=== PATIENT | male | born 1940 | race Caucasian/White ===

== ENCOUNTER 2017-08-12 07:00 | Inpatient (IN) | payer OTHER ==
[~2017-08-12] VITALS: Ht 167.6 cm; Wt 49.0 kg
[~2017-08-12 07:00] MED LIST: FLOMAX0.4 M1 PO; PROSCAR5 M1 PO; TRAMADOL HCL50 M1 PO
--- NOTE | 2017-08-12 13:55 | Operative Report ---
Operative/Inv Procedure Report Surgery Date: 08/12/17 Name of Procedure: 1. Reversal of colostomy with partial large bowel resection 2. Mobilization of splenic flexure 3. Lysis of adhesions lasting 1 hour 4. Rigid sigmoidoscopy Pre-Operative Diagnosis: 1.Crohn's colitis with colocutaneous fistulous 2. 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 Jimbo CAESY Anesthesia: general endotracheal tube, block Monitors: Per routine Drains: None Specimens: 1. Colostomy 2. Descending colon with splenic flexure 3. Rectum Complications: At the end of the case anesthesia the urine output was noted to be blood tinged Initially when the Mcnally was placed. A large volume of yellow clear urine After insertion had very little urine output At this point Dr. Ha urology was asked to see the patient. He performed Intra-Op consult. He felt that the catheter had become positioned. He removed the old catheter and placed a coud catheter. He confirmed placement with irrigation. Condition: Good Operative Indication: This is a 77-year-old gentleman with complex Crohn's disease Is status post Alcantara's procedure for perforated Crohn's disease with enterocutaneous fistula and fistula to inguinal hernia mesh. Sometime after his Alcantara's procedure he developed fistulization from the colon leading up to the colostomy to the skin. This caused constant pain and ongoing infection. He was referred to me Temporarily improve this situation by changing his stomal collection device I discussed the patient at length with his GI doctor. We went to the operating room with the plan of taking down this colostomy and if possible reversing the colostomy. Operative/Procedure Note Note: On the day before the operation the patient about prep at home including oral laxatives and oral antibiotics He presented to [facility] was given premedication per the ERAS protocol and then taken to the operating room And underwent induction of general anesthesia placement of endotracheal tube and placement of Mcnally catheter. Anesthesia to bilateral tap blocks. I sutured the opening to the stoma shut The patient was converted to lithotomy position in [facility]. At this point gentle digital exam was performed and had stricturing of the anus. Rigid sigmoidoscopy was performed. It was copiously amount of purulent appearing mucus within the rectal vault. A irrigated and aspirated this mucus away. The mucosa appeared otherwise healthy. So we proceeded to the abdominal portion of the operation The abdomen was prepped and draped in usual fashion. The medial generous midline incision took this incision down to the fascia. Fascia was carefully divided in the midline. Peritoneum was sharply incised into the abdominal cavity. For the next 30 minutes or so lysis of adhesions was carried out. The omentum was adherent to most of the midline incision and had here into the pelvis and this was freed up. Some interloop adhesions were sharply divided. At this point all the was swept out of the pelvis and we could identify the Alcantara's pouch which was very long. Next an elliptical incision was carried out around the stoma and the stoma was dissected free from the underlying subcutaneous tissues all the way to we reached the fascia. I was able to free the stomach from the fascia and pulled some additional colon out through this fascial defect. The distal 10 cm of bowel were very obviously affected with Crohn's. The bowel was firm and inflamed. The mesentery proximal to this bowel was cleared with electrocautery in vessel sealer. A FARAZ stapler was then used to divide this and of the bowel which was sent for routine path as colostomy. Additional lysis of adhesions was performed and the entire left colon was mobilized. The splenic flexure was completely mobilized. The gastrocolic ligament was divided for almost the entire length of the transverse colon. The transverse colon appeared healthy and appeared that what it would reach the pelvis. The more distal bowel was tethered by its mesentery. So the mesentery of the remaining descending colon and splenic flexure were divided with the LigaSure device. I chose my proximal site of transection cleared the mesentery here and once again the FARAZ stapler was used to divide the bowel. This specimen was sent as descending colon with splenic flexure. At this point the. The bookwalter was placed and the small bowel swept into the right upper quadrant. The most proximal portion of the Alcantara's pouch had become contracted and appeared unfit for anastomosis. I began to mobilize the rectosigmoid as I did so with electrocautery and the vessel sealer. The superior rectal artery was identified and ligated and divided with vessel sealer. I chose my site of transection on the rectum proper. A TA 55 stapler was used to seal the bowel and the bowel proximal to the stapler was excised sharply. The specimen was sent for routine path labeled rectum I excised the staple line on the colon. Handsewn pursestring was performed with 2-0 Prolene. 28 EEA stapler was chosen for the anastomosis. The anvil was placed into the lumen of the bowel and the pursestring was tied snugly around the PEG of the anvil. Next the EEA sizers then the EEA stapler passed transanally. The stapler spike was advanced through the rectal stump. Emerged in the midline of the of the staple line just anterior to the staple line. The 2 ends of the stapler were mated. The stapler was completely closed and allowed to settle for 30 seconds. The stapler was armed and fired. The stapler was opened and retrieved. 2 excellent donuts on the stapling device. The pelvis was filled with sterile saline. The bowel was gently occluded above the anastomosis and a rigid sigmoidoscopy was performed. The anastomosis appeared airtight. At this point the abdominal cavity was irrigated. Inspected for hemostasis which was adequate. Next we prepared for closure. The fascia at the colostomy site was closed with 0 Vicryl suture. The midline fascia was closed with running locking 0 PDS looped suture. The subcutaneous tissues in the midline suture were copiously irrigated and then the scope can was closed with skin placido. A probe was placed through the fistula opening medial to the old colostomy site and the skin between this ostomy site fistula was divided. A sterile dressing was placed over the midline incision. Before packing was placed into the old stoma wound site. At this point the hematuria was noted Dr. Ha placed a Mcnally. The patient was exiting operating room. He tolerated the procedure well. He was taken the recovery room in good condition. At the end of this operational needle sponges and measurements were accounted for Discharge Disposition: Same Day Admissions CC: Shannan MEYER,Andrae Pearson; Gabriel Calloway DO
[2017-08-12 16:00] VITALS: BP 120/68
--- NOTE | 2017-08-12 16:19 | Admission Core Measures ---
Acute Coronary Syndrome (CM) ACS Core Measures Acute Coronary Syndrome Diagnosis No Congestive Heart Failure (NEW) CHF Core Measures Congestive Heart Failure Diagnosis No Cerebrovascular Accident (NEW) CVA Core Measures CVA/TIA Diagnosis No Venous Thromboembolism VTE Core Forrest (View Protocol) VTE Risk Factors Surgery No Mechanical VTE Prophylaxis d/t N/A MechProphylax Ordered No VTE Pharm Prophylaxis d/t NA PharmProphylax ordered Problem List As ranked by this Provider includes Assessment & Plan 1. Crohn's disease of colon with fistula HOME MEDS Home Med List Finasteride (Proscar) 5 MG TABLET 1 TAB PO DAILY urinary retention Tamsulosin HCl (Flomax) 0.4 MG CAP.ER.24H 1 CAP PO DAILY urinary retention Tramadol HCl 50 MG TABLET 1 TAB PO Q 4-6P PRN pain
--- NOTE | 2017-08-12 16:32 | PN- General Surgery ---
Subjective Subjective: PT IN BED WITH ABDOMINAL PAIN 11/14. DENIES NAUSEA. COMPLAINS OF DRY MOUTH. DENIES CP/SOB/FEVERS. CROSS IN PLACE. HAS NOT AMBULATED YET Objective Vital Signs and I&Os Vital Signs Date Time Temp Pulse Resp B/P B/P Pulse O2 O2 Flow FiO2 Mean Ox Delivery Rate 08/12 1542 99 Nasal 2.0L Cannula Intake & Output 08/12 0808/12 0000 08/11 1600 08/11 0000 Intake Total Output Total Balance Patient 107 lb Weight Weight Bed scale Measurement Method Physical Exam: GEN- NAD RESP-CLEAR CARDIAC-RRR ABD- FLAT, -BS, APPROPRIATELY TENDER. DRESSING WITH SANG DRAINAGE AT INFERIOR ASPECT, EXT- WARM AND DRY WITH 2+ PT PULSE Current Medications: Current Medications Sig/Tye Start time Last Medication Dose Route Stop Time Status Admin Acetaminophen 1,000 MG Q8 08/12 1400 AC IV 08/13 0601 Acetaminophen 0 .STK-MED ONE 08/13 951 DC PO Acetaminophen 1,000 MG ONCE 08/12 0000 DC PO 08/12 2359 Alvimopan 12 MG Q12H 08/12 1900 AC PO Alvimopan 12 MG ONCE 08/12 0000 DC PO 08/12 2359 Cefazolin Sodium 2 GM IQ8 08/12 1600 AC N/A 1 UNIT IV 08/13 0029 Dextrose/Sodium 1,000 ML .Q20H 08/12 1545 AC Chloride IV Finasteride 5 MG DAILY 08/13 899 DC PO Finasteride 5 MG DAILY 08/13 899 AC PO Gabapentin 200 MG TID 08/12 1400 AC PO Gabapentin 0 .STK-MED ONE 08/12 0852 DC PO Gabapentin 600 MG ONCE 08/12 0000 DC PO 08/12 2359 Heparin Sodium 5,000 UNIT Q8 08/12 1400 AC (Porcine) SC Metronidazole 500 MG IQ8 08/12 1600 AC N/A 1 UNIT IV 08/13 0059 Ondansetron HCl 4 MG Q6P PRN 08/12 1545 AC IV Oxycodone HCl 5 MG Q4P PRN 08/12 1400 AC PO Oxycodone HCl 10 MG Q4 PRN 08/12 1400 AC PO Tamsulosin HCl 0.4 MG DAILY 08/13 899 DC PO Tamsulosin HCl 0.4 MG DAILY 05/09 0900 AC PO Assessment/Plan Assessment/Plan 77YO M WITH SIGNIF HX OF BPH and CROHNS REQUIRING HARTMANS PROCEDURE NOW SP COLOSTOMY REVERSAL POD0 on ERAS protocol. STABLE. TRAUMATIC CROSS INSERTION, WITH POST-OP HEMATURIA EVALUATED BY UROLOGY. THEY REPLACED CROSS WITH COUDE CATH WITH RECOMENDTIONS to leave in for at least 24hours 24hr hammad-op abx- ANCEF AND FLAGYL pain management with neurotin, Ofirmev and Oxycodone for breakthrough pain, try to limit narcotics Clear liquids DVT PPX- HSQ AND ALPS cross to stay in for at least 24h FU am labs IVF OOB Core Measures Venous Thromboembolism VTE Risk Factors Surgery No Mechanical VTE Prophylaxis d/t N/A MechProphylax Ordered No VTE Pharm Prophylaxis d/t NA PharmProphylax ordered
[2017-08-12 18:00] VITALS: BP 120/60
[2017-08-12 19:59] VITALS: BP 118/60
--- NOTE | 2017-08-12 21:04 | Surgical Discharge Summary ---
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 Home Who Do You Live With? Spouse Services at Home: None What is Your Primary Language? Nigerian Review of Systems: as per hpi Hospital Course Course Attending Physician: Jimbo Jameson Jr., DO Primary Care Physician: Gabriel Calloway DO Hospital Course: 77yo male with significant hx of Crohn's disease presents to [facility] on 08/12/17 for an elective reversal of colostomy with partial large bowel resection due to Crohn's colitis with multiple colocutaneous fistuli. Pt tolerated the procedure well. His ostomy site incision was partially closed with placido and was packed with iodiform and his midline incision was closed primarily with placido. Post- operatively it was noted that he had blood-tinged urine. Urology was called and they removed the cross and re-inserted a coude catheter and recommended the cross to stay in for at least 24h post-operatively. Pt was then extubated and brought to the recovery room in stable condition. During his hospital course his pain was controlled, he ambulated, his diet was advance to LRD which was tolerated, the cross was removed and he was cleared for DC to home with instuctions to follow-up with Dr. Jameson in 10 days. At discharge his wounds looked good. He was set up with home care for wet to dry daily dressing changes to the ostomy site. He was instructed to take immodium as needed since he is unable to recieve lomotil at this time due to cost issues. Allergies: Coded Allergies: No Known Allergies (08/07/17) Significant Procedures: 1. Reversal of colostomy with partial large bowel resection 2. Mobilization of splenic flexure 3. Lysis of adhesions lasting 1 hour 4. Rigid sigmoidoscopy See operative report Disposition Summary Disposition Principal Diagnosis: Crohn's colitis with colocutaneous fistulous Additional Diagnosis: SP colostomy reversal Discharge Disposition: home health services Discharge Instructions General Discharge Information Code Status: Full Code Patient's Diet: low residue Patient's Activity: as tolerated Follow-Up Instructions/Appts: FU with Dr. Jameson in 10 days, FU with DR Sahil Campbell Medications at Discharge Discharge Medications: Continue taking these medications: Finasteride (Proscar) 5 MG TABLET 1 Tablet ORAL DAILY Qty = 30 Comments: Last Taken: 08/18/17 Time: 10:00 Tamsulosin HCl (Flomax) 0.4 MG CAP.ER.24H 1 Capsule ORAL DAILY Qty = 30 Comments: Last Taken: 08/18/17 Time: 09:00 Vedolizumab (Entyvio) 300 MG VIAL 300 Milligram INTRAVEN Instructions: INFUSE EVERY 8 WEEKS NOT TAKEN IN HOSPITAL Diphenoxylate HCl/Atropine (Lomotil 2.5-0.025 MG Tablet) 2.5 MG-0.025 MG TABLET 2 Tablet ORAL THREE TIMES DAILY as needed for LOOSE STOOLS Instructions: LAST TAKEN: 1 TAB 08/18/17 @ 0900 AM Start taking the following new medications: Tramadol HCl (Tramadol HCl) 50 MG TABLET 1 Tablet ORAL EVERY SIX HOURS NEEDED as needed for pain Qty = 12 No Refills Comments: NOT TAKEN IN HOSPITAL Copies To: Gisell Norwood DO,Jimbo Pearson; Shannan MEYER,Andrae Pearson; Gabriel Calloway DO
--- NOTE | 2017-08-12 21:07 | Patient Discharge Instructions ---
Discharge Instructions General Discharge Information You were seen/treated for: Crohn's colitis with colocutaneous fistulous You had these procedures: Colostomy reversal with partial large bowel resection Watch for these problems: fever over 100.3, nausea, vomiting, constipation, sudden increase in abdominal pain, chest pain, shortness of breath No bath, but you may shower: Yes Other wound care: keep wound clean and dry. daily packing change in left-side abdominal wound. Jessica will need to be removed 0-14 days after discharge. Call Dr Jameson's office for an appointment. Special Instructions: Continue lomotil as prescribed by GI. If unable to purchase due to cost, may use immodium as an alternative which is over the counter. Use three times daily as needed. Follow up with GI regarding future medication regimen. Diet Recommended Diet: Low Residue Activity Activity Self Limited: Yes Pounds, do NOT lift more than: 5 Acute Coronary Syndrome Inclusion Criteria At DC or during hospital stay patient has or had the following: ACS DIAGNOSIS No Discharge Core Measures Meds if any: Prescribed or Continued at Discharge Meds if any: NOT Prescribed or Continued at Discharge Congestive Heart Failure Inclusion Criteria At DC or during hospital stay patient has or had the following: CHF DIAGNOSIS No Discharge Core Measures Meds if any: Prescribed or Continued at Discharge Meds if any: NOT Prescribed or Continued at Discharge Cerebrovascular accident Inclusion Criteria At DC or during hospital stay patient has or had the following: CVA/TIA Diagnosis No Discharge Core Measures Meds if any: Prescribed or Continued at Discharge Meds if any: NOT Prescribed or Continued at Discharge Venous thromboembolism Inclusion Criteria VTE Diagnosis No VTE Type NONE VTE Confirmed by (Test) NONE Discharge Core Measures - Per Current guidelines, there needs to be overlap - treatment for the first 5 days of Warfarin therapy. - If discharged on Warfarin prior to 5 days of - overlap therapy, the patient will need to be - assessed for post discharge needs including - *Post discharge parental anticoagulation - *Warfarin and/or parental anticoagulation education - *Follow up date to check INR post discharge At least 5 days overlap therapy as Inpatient No Meds if any: Prescribed or Continued at Discharge Note: Overlap Therapy is Warfarin and Anticoagulant Meds if any: NOT Prescribed or Continued at Discharge
[2017-08-12 22:00] VITALS: BP 100/50
[2017-08-13 01:57] VITALS: BP 108/54
[2017-08-13 06:17] VITALS: BP 114/60
--- NOTE | 2017-08-13 07:52 | PN- General Surgery ---
See Addendum Subjective Subjective: feeling ok, minimal pain- hepled w tylenol. marybeth clrs, no n/v. no flatus/bm. no oob. +uo via cross Objective Vital Signs and I&Os Vital Signs Date Time Temp Pulse Resp B/P B/P Pulse O2 O2 Flow FiO2 Mean Ox Delivery Rate 08/13 0617 97.5 62 20 114/60 99 Nasal Cannula 08/13 0611 98 Room Air 08/13 0211 97.5 100 Nasal 1.0L Cannula 08/13 0157 96.8 65 20 108/54 100 Nasal 2.0L Cannula 08/13 0000 100 Nasal 2.0L Cannula 08/12 2200 97.5 58 18 100/50 100 Nasal Cannula 08/12 1959 97.5 61 20 118/60 100 Nasal Cannula 08/12 1800 96.8 64 20 120/60 100 Nasal Cannula 08/12 1600 97.3 64 20 120/68 99 Nasal 2.0L Cannula 08/12 1542 99 Nasal 2.0L Cannula Intake & Output 08/13 0808/13 0000 08/12 1600 08/12 0800 08/12 0000 08/11 1600 Intake Total 725 425 Output Total 150 Balance 725 275 Intake, IV 525 225 Intake, Oral 200 200 Output, Urine 150 Patient 107 lb Weight Weight Bed scale Measurement Method Physical Exam: gen- nad card- s1s2 pulm- no audible wheeze abd- softly distended, large dressing in place- inferior dressing w scant bloody staining, ttp thoughout ext- alps on bl, calves soft nt Assessment/Plan Assessment/Plan A- POD1 sp colosotmy reversal with partial colectomy, stable, awaiting return bowel fxn. P- prn pain meds keep cross until tonight- no signs of hematuria now. cont ivf encourage nonnarcotic pain mgmt alps, hep sq needs oob keep clrs, await bowel fxn will dw attending Core Measures Venous Thromboembolism VTE Risk Factors Surgery No Mechanical VTE Prophylaxis d/t N/A MechProphylax Ordered No VTE Pharm Prophylaxis d/t NA PharmProphylax ordered
[2017-08-13 08:14] LABS: ABSOLUTE BASOPHIL COUNT 0 /CUMM (0.0-0.2); ABSOLUTE EOSINOPHIL COUNT 0 /CUMM (0.0-0.7); ABSOLUTE GRANULOCYTE CT 15.8 /CUMM (1.4-6.5); ABSOLUTE LYMPH COUNT 1.2 /CUMM (1.2-3.4); BASOPHIL % 0.1 % (0.0-2.0); EOSINOPHIL % 0 % (0-5); MEAN CORPUSCULAR HGB 24.9 PG (27.0-31.0); MEAN CORPUSCULAR HGB CONC 32.1 G/DL (33.0-37.0); MEAN CORPUSCULAR VOLUME 77.7 FL (80.0-94.0); MEAN PLATELET VOLUME 7.3 FL (7.4-10.4); RBC DISTRIBUTION WIDTH 16.4 % (11.5-14.5); RED BLOOD CELL CT 2.94 /CUMM (4.70-6.10)
[2017-08-13 08:55] LABS: HEMATOCRIT 22.8 % (42-52)
[2017-08-13 09:15] LABS: GRANULOCYTE % 87.8 % (42.2-75.2); PLATELET COUNT 407 /CUMM (130-400)
[2017-08-13 14:05] VITALS: BP 110/50
[2017-08-13 21:30] LABS: ABSOLUTE BASOPHIL COUNT 0 /CUMM (0.0-0.2); ABSOLUTE EOSINOPHIL COUNT 0 /CUMM (0.0-0.7); ABSOLUTE GRANULOCYTE CT 10.2 /CUMM (1.4-6.5); ABSOLUTE LYMPH COUNT 1.8 /CUMM (1.2-3.4); BASOPHIL % 0.3 % (0.0-2.0); EOSINOPHIL % 0 % (0-5); GRANULOCYTE % 78.5 % (42.2-75.2); MEAN CORPUSCULAR HGB 25.9 PG (27.0-31.0); MEAN CORPUSCULAR HGB CONC 32.3 G/DL (33.0-37.0); MEAN CORPUSCULAR VOLUME 80.2 FL (80.0-94.0); MEAN PLATELET VOLUME 7.3 FL (7.4-10.4); PLATELET COUNT 418 /CUMM (130-400); RBC DISTRIBUTION WIDTH 16.3 % (11.5-14.5); RED BLOOD CELL CT 3.67 /CUMM (4.70-6.10)
[2017-08-13 21:34] LABS: HEMATOCRIT 29.5 % (42-52)
[2017-08-13 22:54] VITALS: BP 126/68
[2017-08-14 06:54] VITALS: BP 120/68
--- NOTE | 2017-08-14 07:31 | PN- General Surgery ---
Surgical Brief Attending Note Brief Attending Note: Patient without complaints this morning AVSS overnight Mcnally removed last night and patient due to void Abdomen is soft nondistended line dressing still intact. Dressing and packing removed from old stoma site new moist dressing placed Impression: Awaiting bowel function-continue clears for the morning can advance to full later in the day if patient desires Patient is due to void-if urinary retention need to reconsult urology, Dr. Ha. Patient had difficult Mcnally placement in the OR Start normal saline wet to moist dressing changes twice a day
[2017-08-14 08:23] LABS: ABSOLUTE BASOPHIL COUNT 0 /CUMM (0.0-0.2); ABSOLUTE EOSINOPHIL COUNT 0 /CUMM (0.0-0.7); ABSOLUTE GRANULOCYTE CT 8.7 /CUMM (1.4-6.5); ABSOLUTE LYMPH COUNT 1.6 /CUMM (1.2-3.4); ABSOLUTE MONOCYTE COUNT 0.9 /CUMM (0.10-0.60); BASOPHIL % 0.3 % (0.0-2.0); EOSINOPHIL % 0.2 % (0-5); GRANULOCYTE % 77.6 % (42.2-75.2); MEAN CORPUSCULAR HGB 25.8 PG (27.0-31.0); MEAN CORPUSCULAR HGB CONC 32.5 G/DL (33.0-37.0); MEAN CORPUSCULAR VOLUME 79.6 FL (80.0-94.0); MEAN PLATELET VOLUME 7.1 FL (7.4-10.4); PLATELET COUNT 368 /CUMM (130-400); RED BLOOD CELL CT 3.65 /CUMM (4.70-6.10); WHITE BLOOD CELL COUNT 11.2 /CUMM (4.8-10.8)
--- NOTE | 2017-08-14 09:12 | Operative Report ---
Operative/Inv Procedure Report Surgery Date: 08/12/17 Name of Procedure: difficult cross insertion Pre-Operative Diagnosis: hematuria-unable to pass cross Post-Operative Diagnosis: same Estimated Blood Loss: scant Surgeon/Development Lead: MD Ha Arnold-urology Anesthesia: general endotracheal tube Drains: 16fr Coude cross-to be removed in AM post-op. Complications: none Condition: improved Operative/Procedure Note Note: Intraoperative consult was requested due to hematuria with difficult Cross placement by the OR staff. The patient was already draped and prepped upon my arrival. A 16 Japanese coud Cross catheter was well-lubricated, and inserted into the urethra with gentle rotation technique. The Cross catheter eventually found the prostatic channel, and was advanced into the bladder draining clear yellow urine. 10 mL of sterile water was placed into the balloon the patient tolerated procedure and was then taken to recovery in satisfactory condition. Discharge Disposition: PACU CC: Prieto Ha MD
[2017-08-14 14:51] VITALS: BP 110/58
[2017-08-14 23:26] VITALS: BP 122/60
[2017-08-15 06:20] VITALS: BP 132/58
--- NOTE | 2017-08-15 07:39 | PN- General Surgery ---
See Addendum Subjective Subjective: Patient doing fairly well this am. Pain well controlled, voiding and tolerating full liquids. Has only been oob to the commode. Minimal use of IS. No other issues or complaints. Objective Vital Signs and I&Os Vital Signs Date Time Temp Pulse Resp B/P B/P Pulse O2 O2 Flow FiO2 Mean Ox Delivery Rate 08/15 0520 98.7 69 16 132/58 97 Room Air 08/14 2326 99.1 74 19 122/60 95 Room Air 08/14 1451 99.1 66 16 110/58 96 08/14 0755 118/60 Intake & Output 08/15 0000 08/14 1600 08/14 0808/14 0000 08/13 1600 Intake Total 347 158 9044 400 400 Output Total 500 815 950 75 650 1900 Balance -250 -665 275 325 -250 -1900 Intake, IV 10 10 200 300 Intake, Oral 462 187 8995 200 100 Output, Urine 500 815 950 75 650 1900 Physical Exam: General: A, A, NAD Abdomen: Soft, ND, appropriately ttp, midline incision c/d/i with placido in place, previous colostomy site with placido on the medial aspect which are in place with no surrounding edema, erythema or induration, lateral aspect open, wound bed beefy red/pink with granulation tissue, redressed with a w-> d dsg Extremities: No clubbing, cyanosis or edema Current Medications: Current Medications Sig/Tye Start time Last Medication Dose Route Stop Time Status Admin Alvimopan 12 MG Q12H 08/12 190 AC 08/15 PO 0542 Finasteride 5 MG DAILY 08/13 899 AC 08/14 PO 0755 Gabapentin 200 MG TID 08/12 1399 AC 08/14 PO 2014 Heparin Sodium 5,000 UNIT Q8 08/12 1400 AC 08/15 (Porcine) SC 0541 Ondansetron HCl 4 MG Q6P PRN 08/12 1545 AC IV Oxycodone HCl 5 MG Q4P PRN 08/12 1400 AC 08/14 PO 0755 Oxycodone HCl 10 MG Q4 PRN 08/12 1400 AC 08/13 PO 2218 Patient Medication 1 ED ONE ONE 08/14 1645 DC Teaching ED 08/14 1646 Tamsulosin HCl 0.4 MG DAILY 08/13 899 AC 08/14 PO 0755 Results Last 48 Hours of Labs: Laboratory Tests 08/15 08/14 0715 0755 Chemistry Sodium (137 - 145 mmol/L) 139 Potassium (3.5 - 5.1 mmol/L) 4.1 Chloride (98 - 107 mmol/L) 103 Carbon Dioxide (22 - 30 mmol/L) 30 Anion Gap (5 - 16) 6 BUN (9 - 20 mg/dL) 10 Creatinine (0.7 - 1.2 mg/dL) 0.7 Estimated GFR (>60 ml/min) > 60 BUN/Creatinine Ratio (7 - 25 %) 14.3 Magnesium (1.6 - 2.3 mg/dL) 1.8 Hematology CBC w Diff Pending NO MAN DIFF REQ WBC (4.8 - 10.8 /CUMM) Pending 11.2 H RBC (4.70 - 6.10 /CUMM) Pending 3.65 L Hgb (14.0 - 18.0 G/DL) Pending 9.4 L Hct (42 - 52 %) Pending 29.0 L MCV (80.0 - 94.0 FL) Pending 79.6 L MCH (27.0 - 31.0 PG) Pending 25.8 L MCHC (33.0 - 37.0 G/DL) Pending 32.5 L RDW (11.5 - 14.5 %) Pending 17.0 H Plt Count (130 - 400 /CUMM) Pending 368 MPV (7.4 - 10.4 FL) Pending 7.1 L Gran % (42.2 - 75.2 %) 77.6 H Lymphocytes % (20.5 - 51.1 %) 14.2 L Monocytes % (1.7 - 9.3 %) 7.7 Eosinophils % (0 - 5 %) 0.2 Basophils % (0.0 - 2.0 %) 0.3 Absolute Granulocytes (1.4 - 6.5 /CUMM) 8.7 H Absolute Lymphocytes (1.2 - 3.4 /CUMM) 1.6 Absolute Monocytes (0.10 - 0.60 /CUMM) 0.9 H Absolute Eosinophils (0.0 - 0.7 /CUMM) 0 Absolute Basophils (0.0 - 0.2 /CUMM) 0 08/14 2019 Hematology CBC w Diff NO MAN DIFF REQ WBC (4.8 - 10.8 /CUMM) 13.0 H RBC (4.70 - 6.10 /CUMM) 3.67 L Hgb (14.0 - 18.0 G/DL) 9.5 L Hct (42 - 52 %) 29.5 L MCV (80.0 - 94.0 FL) 80.2 MCH (27.0 - 31.0 PG) 25.9 L MCHC (33.0 - 37.0 G/DL) 32.3 L RDW (11.5 - 14.5 %) 16.3 H Plt Count (130 - 400 /CUMM) 418 H MPV (7.4 - 10.4 FL) 7.3 L Gran % (42.2 - 75.2 %) 78.5 H Lymphocytes % (20.5 - 51.1 %) 13.6 L Monocytes % (1.7 - 9.3 %) 7.6 Eosinophils % (0 - 5 %) 0 Basophils % (0.0 - 2.0 %) 0.3 Absolute Granulocytes (1.4 - 6.5 /CUMM) 10.2 H Absolute Lymphocytes (1.2 - 3.4 /CUMM) 1.8 Absolute Monocytes (0.10 - 0.60 /CUMM) 1.0 H Absolute Eosinophils (0.0 - 0.7 /CUMM) 0 Absolute Basophils (0.0 - 0.2 /CUMM) 0 Assessment/Plan Assessment/Plan Assessement: This is a 77 yo male who is POD#3 s/p colosotmy reversal with partial colectomy, doing well, awaiting full return bowel fxn. Plan: Ambulate, PT consult PRN Pain Control and Antiemetics Continue Entereg Follow up cbc, continue monitoring anemia GI/DVT Px IS/Turn, cough, deep breathe On fulls, consider low residue as has return of flatus Continue wet to dry dsg changes to previous colostomy site Will need VNA for wound care upon discharge Will d/w attending Core Measures Venous Thromboembolism VTE Risk Factors Surgery No Mechanical VTE Prophylaxis d/t N/A MechProphylax Ordered No VTE Pharm Prophylaxis d/t NA PharmProphylax ordered
[2017-08-15 08:48] LABS: ABSOLUTE BASOPHIL COUNT 0.1 /CUMM (0.0-0.2); ABSOLUTE EOSINOPHIL COUNT 0.1 /CUMM (0.0-0.7); ABSOLUTE GRANULOCYTE CT 6.5 /CUMM (1.4-6.5); ABSOLUTE MONOCYTE COUNT 0.6 /CUMM (0.10-0.60); GRANULOCYTE % 78.7 % (42.2-75.2); HEMATOCRIT 29.4 % (42-52); MEAN CORPUSCULAR HGB 25.6 PG (27.0-31.0); MEAN PLATELET VOLUME 7.6 FL (7.4-10.4); PLATELET COUNT 382 /CUMM (130-400); RBC DISTRIBUTION WIDTH 17.4 % (11.5-14.5); RED BLOOD CELL CT 3.68 /CUMM (4.70-6.10); WHITE BLOOD CELL COUNT 8.3 /CUMM (4.8-10.8)
[2017-08-15 14:25] VITALS: BP 188/60
[2017-08-15 21:49] VITALS: BP 124/60
[2017-08-16 06:20] VITALS: BP 144/70
[2017-08-16 08:55] LABS: ABSOLUTE BASOPHIL COUNT 0.1 /CUMM (0.0-0.2); ABSOLUTE EOSINOPHIL COUNT 0.3 /CUMM (0.0-0.7); ABSOLUTE GRANULOCYTE CT 5.9 /CUMM (1.4-6.5); ABSOLUTE LYMPH COUNT 1.3 /CUMM (1.2-3.4); ABSOLUTE MONOCYTE COUNT 0.5 /CUMM (0.10-0.60); BASOPHIL % 0.8 % (0.0-2.0); EOSINOPHIL % 3.3 % (0-5); GRANULOCYTE % 74.3 % (42.2-75.2); HEMATOCRIT 31.5 % (42-52); MEAN CORPUSCULAR HGB 25.3 PG (27.0-31.0); MEAN CORPUSCULAR HGB CONC 31.6 G/DL (33.0-37.0); MEAN CORPUSCULAR VOLUME 79.9 FL (80.0-94.0); MEAN PLATELET VOLUME 7.7 FL (7.4-10.4); PLATELET COUNT 465 /CUMM (130-400); RED BLOOD CELL CT 3.94 /CUMM (4.70-6.10)
--- NOTE | 2017-08-16 13:05 | PN- General Surgery ---
Surgical Brief Attending Note Brief Attending Note: Melanotic/black appearing stool per rectum. WOunds fine and HCt OK this am. Took po ensure OK. No abd pain. Would stop entereg and SQ heparin for now and add some acid protection since this may not be anastomotic given color. Re check H/H today.
--- NOTE | 2017-08-16 13:34 | PN- General Surgery ---
Subjective Subjective: Patient seen and examined. He is having some old blood/stool pass per rectum. Pain is controlled on current regiemn. Not getting out of bed much, needs encouragement. Minmal use of IS. Otherwise, comfortable. Objective Vital Signs and I&Os Vital Signs Date Time Temp Pulse Resp B/P B/P Pulse O2 O2 Flow FiO2 Mean Ox Delivery Rate 08/16 0759 71 138/70 08/16 0620 97.7 78 16 144/70 95 Room Air 08/15 2149 98.6 82 18 124/60 95 08/15 1425 97.8 79 18 188/60 95 Room Air Intake & Output 08/16 1600 08/16 0800 08/16 0000 08/15 1600 08/15 0800 08/15 0000 Intake Total 250 250 600 250 150 Output Total 400 500 815 Balance -150 250 600 -250 -665 Intake, IV 10 10 10 10 Intake, Oral 240 240 600 240 140 Number 1 0 Bowel Movements Output, Urine 400 500 815 Patient 108 lb Weight Physical Exam: General: elderly male, laying supine in bed, NAD CV: RRR Pulm: decreased inspiratory effort Abdomen: Soft, ND, appropriately ttp, midline incision c/d/i with placido in place, previous colostomy site with placido on the medial aspect which are in place with no surrounding edema, erythema or induration, lateral aspect open, wound bed beefy red/pink with granulation tissue, some old blood/gas from rectum Extremities: No clubbing, cyanosis or edema Current Medications: Current Medications Sig/Tye Start time Last Medication Dose Route Stop Time Status Admin Acetaminophen 650 MG Q4P PRN 08/16 1345 UNVr PO Alvimopan 12 MG Q12H 08/12 1900 DC 08/16 PO 0549 Calcium Carbonate 500 MG Q6-PRN PRN 08/15 1630 AC PO Famotidine 20 MG BID 08/15 1600 AC 08/16 IV 0756 Finasteride 5 MG DAILY 08/13 0900 AC 08/16 PO 0758 Gabapentin 200 MG TID 08/12 1400 AC 08/16 PO 1312 Heparin Sodium 5,000 UNIT Q8 08/12 1400 DC 08/16 (Porcine) SC 0549 Ondansetron HCl 4 MG Q6P PRN 08/12 1545 AC IV Oxycodone HCl 5 MG Q4P PRN 08/12 1400 AC 08/16 PO 0758 Oxycodone HCl 10 MG Q4 PRN 08/12 1400 AC 08/13 PO 2218 Tamsulosin HCl 0.4 MG DAILY 08/13 0900 AC 08/16 PO 0759 Results Last 48 Hours of Labs: Laboratory Tests 08/16 08/15 0705 0715 Hematology CBC w Diff NO MAN DIFF REQ NO MAN DIFF REQ WBC (4.8 - 10.8 /CUMM) 8.0 8.3 RBC (4.70 - 6.10 /CUMM) 3.94 L 3.68 L Hgb (14.0 - 18.0 G/DL) 10.0 L 9.4 L Hct (42 - 52 %) 31.5 L 29.4 L MCV (80.0 - 94.0 FL) 79.9 L 80.0 MCH (27.0 - 31.0 PG) 25.3 L 25.6 L MCHC (33.0 - 37.0 G/DL) 31.6 L 32.0 L RDW (11.5 - 14.5 %) 18.0 H 17.4 H Plt Count (130 - 400 /CUMM) 465 H 382 MPV (7.4 - 10.4 FL) 7.7 7.6 Gran % (42.2 - 75.2 %) 74.3 78.7 H Lymphocytes % (20.5 - 51.1 %) 15.8 L 12.5 L Monocytes % (1.7 - 9.3 %) 5.8 6.8 Eosinophils % (0 - 5 %) 3.3 1.0 Basophils % (0.0 - 2.0 %) 0.8 1.0 Absolute Granulocytes (1.4 - 6.5 /CUMM) 5.9 6.5 Absolute Lymphocytes (1.2 - 3.4 /CUMM) 1.3 1.0 L Absolute Monocytes (0.10 - 0.60 /CUMM) 0.5 0.6 Absolute Eosinophils (0.0 - 0.7 /CUMM) 0.3 0.1 Absolute Basophils (0.0 - 0.2 /CUMM) 0.1 0.1 Assessment/Plan Assessment/Plan Assessement: This is a 77 yo male who is POD#4 s/p colosotmy reversal with partial colectomy, doing well, awaiting full return bowel fxn. Plan: Ambulate, PT consult PRN Pain Control and Antiemetics dc Entereg Follow up repeat cbc this afternoon 2/2 to old blood coming from rectum GI/DVT Px IS/Turn, cough, deep breathe low residue as has return of flatus Continue wet to dry dsg changes to previous colostomy site Will need VNA for wound care upon discharge Will d/w attending Core Measures Venous Thromboembolism VTE Risk Factors Surgery No Mechanical VTE Prophylaxis d/t N/A MechProphylax Ordered No VTE Pharm Prophylaxis d/t NA PharmProphylax ordered
[2017-08-16 14:49] VITALS: BP 132/70
[2017-08-16 17:59] LABS: ABSOLUTE BASOPHIL COUNT 0.1 /CUMM (0.0-0.2); ABSOLUTE EOSINOPHIL COUNT 0.4 /CUMM (0.0-0.7); ABSOLUTE GRANULOCYTE CT 5.8 /CUMM (1.4-6.5); ABSOLUTE LYMPH COUNT 1.8 /CUMM (1.2-3.4); ABSOLUTE MONOCYTE COUNT 0.5 /CUMM (0.10-0.60); BASOPHIL % 1.7 % (0.0-2.0); EOSINOPHIL % 4.2 % (0-5); GRANULOCYTE % 67.4 % (42.2-75.2); HEMATOCRIT 30.1 % (42-52); MEAN CORPUSCULAR HGB 26.6 PG (27.0-31.0); MEAN CORPUSCULAR HGB CONC 33.5 G/DL (33.0-37.0); MEAN CORPUSCULAR VOLUME 79.6 FL (80.0-94.0); MEAN PLATELET VOLUME 7.4 FL (7.4-10.4); PLATELET COUNT 450 /CUMM (130-400); RBC DISTRIBUTION WIDTH 17.8 % (11.5-14.5); RED BLOOD CELL CT 3.79 /CUMM (4.70-6.10); WHITE BLOOD CELL COUNT 8.6 /CUMM (4.8-10.8)
[2017-08-16 22:04] VITALS: BP 118/54
[2017-08-17 06:36] VITALS: BP 120/62
--- NOTE | 2017-08-17 08:39 | PN- General Surgery ---
See Addendum Subjective Subjective: BM reported overnight, per pt and RN did not appear bloody. Patient is resting comfortably with no reports of increasing abdominal pain. No complaints of nausea or vomitting. No chest pain, shortness of breath and difficulty breathing. Has not been ambulating much, appears fatigued. Objective Vital Signs and I&Os Vital Signs Date Time Temp Pulse Resp B/P B/P Pulse O2 O2 Flow FiO2 Mean Ox Delivery Rate 08/17 0636 97.6 62 20 120/62 96 08/16 2204 98.6 73 18 118/54 97 Room Air 08/16 1449 97.0 71 18 132/70 95 Room Air Intake & Output 08/17 1600 08/17 0800 08/17 0000 08/16 1600 08/16 0800 08/16 0000 Intake Total 662 106 0251 250 250 Output Total 540 400 Balance 130 260 470 -150 250 Intake, IV 10 20 10 10 10 Intake, Oral 385 660 5823 240 240 Number 1 1 3 1 Bowel Movements Output, Urine 540 400 Physical Exam: General: Alert and oriented x3, no acute distress, resting comfortably in bed Cards: RRR, s1s2 Pulm: CTA bilaterally, non-labored respiratory effort Abd: Flat, soft, non-tender. Incision with placido intact, skin edges well approximated, no redness, no drainage. Old ostomy site packing removed, wound bed red with granulation tissue, no surrounding erythema, no drainage, wtd replaced Extremities: Moves all extremities, distal sensation grossly intact. Skin warm and well perfused. DP pulses palpable bilaterally, bilateral calves soft and non-tender. Assessment/Plan Assessment/Plan Assessement: This is a 77 yo male who is POD#5 s/p colosotmy reversal with partial colectomy, doing well, bowel function appears to be returned, melana appears to have resolved. Plan: Ambulate, PT PRN Pain Control and Antiemetics GI/DVT Px IS/Turn, cough, deep breathe Continue low residue diet Continue wet to dry dsg changes to previous colostomy site bid Will need VNA for wound care upon discharge, likely today or tomorrow Will discuss plan of care with Dr. Taylor Core Measures Venous Thromboembolism VTE Risk Factors Surgery No Mechanical VTE Prophylaxis d/t N/A MechProphylax Ordered No VTE Pharm Prophylaxis d/t NA PharmProphylax ordered
[2017-08-17 10:24] LABS: ABSOLUTE BASOPHIL COUNT 0 /CUMM (0.0-0.2); ABSOLUTE EOSINOPHIL COUNT 0.4 /CUMM (0.0-0.7); ABSOLUTE GRANULOCYTE CT 5.7 /CUMM (1.4-6.5); ABSOLUTE LYMPH COUNT 1.2 /CUMM (1.2-3.4); ABSOLUTE MONOCYTE COUNT 0.5 /CUMM (0.10-0.60); BASOPHIL % 0.5 % (0.0-2.0); EOSINOPHIL % 5.3 % (0-5); GRANULOCYTE % 72.3 % (42.2-75.2); HEMATOCRIT 30.7 % (42-52); MEAN CORPUSCULAR HGB 25.8 PG (27.0-31.0); MEAN CORPUSCULAR HGB CONC 32.2 G/DL (33.0-37.0); MEAN CORPUSCULAR VOLUME 80.3 FL (80.0-94.0); MEAN PLATELET VOLUME 7.7 FL (7.4-10.4); PLATELET COUNT 420 /CUMM (130-400); RBC DISTRIBUTION WIDTH 18.3 % (11.5-14.5); RED BLOOD CELL CT 3.83 /CUMM (4.70-6.10); WHITE BLOOD CELL COUNT 7.9 /CUMM (4.8-10.8)
[2017-08-17 14:44] VITALS: BP 100/60; BP 100/600
[2017-08-17 15:26] VITALS: BP 100/60
[2017-08-17 22:50] VITALS: BP 108/56
[2017-08-18 06:18] VITALS: BP 122/60
--- NOTE | 2017-08-18 07:27 | PN- General Surgery ---
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 He was placed on a medication within the past few months by Dr Campbell (can't remember the name) which improved his loose stool situation but he wasn't able to refill it due to cost. He is awaiting a prescription for a generic form or an appeal from Dr Campbell' office. Denies any pain, no nausea, tolerating diet Objective Vital Signs and I&Os Vital Signs Date Time Temp Pulse Resp B/P B/P Pulse O2 O2 Flow FiO2 Mean Ox Delivery Rate 08/18 06 98.1 67 18 122/60 97 Room Air 08/17 2250 98.3 69 18 108/56 96 Room Air 08/17 1526 98.3 64 18 100/60 96 Room Air 08/17 1013 97.6 62 20 120/62 Intake & Output 08/18 0800 08/18 0000 08/17 1600 08/17 0800 08/17 0000 08/16 1600 Intake Total 100 300 102 974 7702 Output Total 200 251 300 540 Balance -100 49 -300 130 260 470 Intake, IV 10 20 10 Intake, Oral 100 300 235 739 7092 Number 1 1 1 3 Bowel Movements Output, Stool 1 Output, Urine 200 250 300 540 Physical Exam: afebrile, vss General: alert and oriented times three Chest: clear anteriorly bilaterally, RRR Abd: soft, good bs, nondistended, nontender Wd: midline incision looks good, clean and dry, placido intact, ostomy site packed with a wet to dry gauze - looks good, no drainage Ext: warm, no edema Current Medications: Current Medications Sig/Tye Start time Last Medication Dose Route Stop Time Status Admin Acetaminophen 650 MG .STK-MED ONE 08/17 1825 DC PO 08/17 1826 Acetaminophen 650 MG .STK-MED ONE 08/17 1331 DC PO 08/17 1332 Acetaminophen 650 MG Q4P PRN 08/16 1345 AC 08/17 PO 1825 Calcium Carbonate 500 MG Q6-PRN PRN 08/15 1630 AC PO Famotidine 20 MG BID 08/15 1600 AC 08/17 IV 2030 Finasteride 5 MG DAILY 08/13 0900 AC 08/17 PO 1012 Gabapentin 200 MG TID 08/12 1400 AC 08/17 PO 2030 Heparin Sodium 5,000 UNIT Q8 08/18 0600 AC 08/18 (Porcine) SC 0634 Ondansetron HCl 4 MG Q6P PRN 08/12 1545 AC IV Oxycodone HCl 5 MG Q4P PRN 08/12 1400 AC 08/16 PO 0758 Oxycodone HCl 10 MG Q4 PRN 08/12 1400 AC 08/13 PO 2218 Tamsulosin HCl 0.4 MG DAILY 08/13 0900 AC 08/17 PO 1013 Assessment/Plan Assessment/Plan 77yo male s/p open colectomy/colostomy reversal pod 6 now tolerating lrd with loose stools - normal baseline with his crohns, no further gi bleed Research pts home meds/contact Dr Campbell office if needed for medication changes continue lrd hep sc for dvt ppx - beginning this morning dc planning Core Measures Venous Thromboembolism VTE Risk Factors Surgery No Mechanical VTE Prophylaxis d/t N/A MechProphylax Ordered No VTE Pharm Prophylaxis d/t NA PharmProphylax ordered
[2017-08-18 08:00] VITALS: BP 122/60
[2017-08-18] MEDS ORDERED: TRAMADOL HCL50 M1 PO ×2 (08:07→08:21)
[2017-08-18] MEDS ORDERED: FLOMAX0.4 M1 PO (08:10)
[2017-08-18] MEDS ORDERED: FINASTERIDE5 M1 PO (08:11)
[2017-08-18] MEDS ORDERED: ENTYVIO300 M1 IV (08:12)
[2017-08-18] MEDS ORDERED: LOMOTIL 2.5-0.1 EACH PO (08:13)
[2017-08-18] MEDS ORDERED: VITAMIN B-121000 MC3 PO (08:16)
== END 2017-08-18 14:53 | disposition home health service (06) | DRG 330 ==
LOC: SDA 08:27 → 2NA 08:27 → ENRESERV 13:51 → ENTRNSPT 15:16 → EDTRNSPTSTS 15:22 → EDTRNSPT 15:22 → 2NA 15:28 → CMPTRNSPT 16:09 → ENPENDDIS 08-18 08:34 → ENTRNSPT 08-18 14:32 → EDTRNSPTSTS 08-18 14:49 → EDTRNSPT 08-18 14:49 → 2NA 08-18 14:53 → CMPTRNSPT 08-18 15:06
PROVIDERS: Physician Assistant; Physician Assistant Surgical
PROC: 0DBM0ZZ Excision of Descending Colon, Open Approach (ICD-10-PCS; principal; 2017-08-12)
PROC: 0DBL0ZZ Excision of Transverse Colon, Open Approach (ICD-10-PCS; 2017-08-12)
PROC: 0DNU0ZZ Release Omentum, Open Approach (ICD-10-PCS; 2017-08-12)
PROC: 0DJD8ZZ Inspection of Lower Intestinal Tract, Via Natural or Artificial Opening Endoscopic (ICD-10-PCS; 2017-08-12)
PROC: 0DBP0ZZ Excision of Rectum, Open Approach (ICD-10-PCS; 2017-08-12)
PROC: 3E0T3BZ Introduction of Anesthetic Agent into Peripheral Nerves and Plexi, Percutaneous Approach (ICD-10-PCS; 2017-08-12)
PROC: 0T9B70Z Drainage of Bladder with Drainage Device, Via Natural or Artificial Opening (ICD-10-PCS; 2017-08-14)
DX: Z43.3 Encounter for attention to colostomy (principal); K50.913 Crohn's disease, unspecified, with fistula; R31.9 Hematuria, unspecified; N40.0 Benign prostatic hyperplasia without lower urinary tract symptoms; K21.9 Gastro-esophageal reflux disease without esophagitis
CPT/HCPCS: 2NASP; 36415; 36592; 82436; 86920; 87086; 88304; 88305; 88307; 97110-GO; 97116-GO; 97161-GP; J0131; J0690; J1644; J7042; P9016